=== PATIENT | female | born 1985 | race Caucasian/White ===

== ENCOUNTER 2019-07-31 12:08 | Inpatient (IN) ==
[2019-07-31] MEDS ORDERED: Lactated Ringers 1000 ml BAG 1,000 ML IV ONE (13:17)
[2019-07-31] MEDS ORDERED: Lactated Ringers 1000 ml BAG 1,000 ML IV SCH (14:00)
[2019-07-31] MEDS ORDERED: Dinoprostone 10 MG VAG.SUPP VAGINAL ONE (21:52)
[2019-08-01 12:19] LABS: Urine Benzodiazepine Screen None Detected (None Detect); Urine Opiates Screen None Detected (None Detect)
[2019-08-01 15:08] LABS: ABS Lymphocytes 0.8 10^3/ul (1.0-4.8); ABS Monocytes 0.6 10^3/ul (0-0.8); Eosinophil % 0.1 %; Hematocrit 38 % (35-47); Hemoglobin 12.9 g/dL (12.0-16.0); Lymphocyte % 5.3 %; Mean Corpuscular HGB Conc 34 g/dL (31-36); Mean Corpuscular Hemoglobin 31 pg (27-31); Mean Corpuscular Volume 89 fL (80-97); Mean Platelet Volume 9.4 fL (7.4-10.4); Platelet Count 182 10^3/uL (150-450); Red Blood Count 4.21 10^6 /uL (3.70-4.87); Red Cell Distribution Width 13 % (10-15); White Blood Count 14.4 10^3/uL (3.5-10.8)
[2019-08-01] MEDS ORDERED: Oxytocin in LR 20 UNITS/1,000 ML BAG IVPB SCH (18:00)
[2019-08-01] MEDS ORDERED: OBEPIDURAL 250 ML EPIDURAL ONE (20:37)
[2019-08-01] MEDS ORDERED: Sodium Citrate/Citric Acid LIQ 15 ML UDC PO PRN (21:39)
[2019-08-01] MEDS ORDERED: OBEPIDURAL 250 ML EPIDURAL SCH (22:00)
[2019-08-01] MEDS ORDERED: Lactated Ringers 1000 ml BAG 1,000 ML IV SCH (22:00)
[2019-08-02] MEDS ORDERED: Dibucaine 1% OINT 28.35 GM TUBE PR PRN (02:37)
[2019-08-02] MEDS ORDERED: Glycerin ADULT 2.4 gm SUPP PR PRN (02:37)
[2019-08-02] MEDS ORDERED: Witch Hazel PAD JAR TOPICAL PRN (02:37)
[2019-08-02] MEDS ORDERED: Oxytocin in LR 20 UNITS/1,000 ML BAG IVPB SCH (03:00)
[2019-08-02] MEDS ORDERED: Lidocaine 1% VIAL 10 MG/ML VIAL ONE (04:36)
[2019-08-03 07:40] LABS: ABS Eosinophils 0.2 10^3/ul (0-0.6); ABS Lymphocytes 2.4 10^3/ul (1.0-4.8); ABS Monocytes 0.5 10^3/ul (0-0.8); Eosinophil % 1.4 %; Hematocrit 30 % (35-47); Hemoglobin 10.3 g/dL (12.0-16.0); Lymphocyte % 21.2 %; Mean Corpuscular HGB Conc 35 g/dL (31-36); Mean Corpuscular Hemoglobin 31 pg (27-31); Mean Corpuscular Volume 90 fL (80-97); Mean Platelet Volume 8.8 fL (7.4-10.4); Platelet Count 162 10^3/uL (150-450); Red Blood Count 3.32 10^6 /uL (3.70-4.87); Red Cell Distribution Width 13 % (10-15); White Blood Count 11.3 10^3/uL (3.5-10.8)
[2019-08-03 08:11] VITALS: BP 121/60
== END 2019-08-03 12:14 | disposition home or self-care (01) | DRG 560 ==
LOC: MCHOBOUT 12:08 → MCHOB 13:18
PROVIDERS: ADMIT Advanced Practice Midwife; ATTEND Advanced Practice Midwife